=== PATIENT | female | born 2000 | race Caucasian/White ===

== ENCOUNTER 2024-12-01 21:09 | Emergency (ER) | payer SELFPAY ==
[~2024-12-01] VITALS: Ht 162.6 cm; Wt 81.4 kg
[2024-12-01] MEDS ORDERED: MULTTAB20 PO (21:16)
[2024-12-01] MEDS ORDERED: UNIS25TA3 PO (21:16)
[2024-12-01] MEDS: NS (Normal Saline) 0.9% 1,000 ML IV ONE (23:29)
[2024-12-01] MEDS: ONDANSETRON 4MG 2ML VIAL IV ONE (23:30)
[2024-12-01 23:33] LABS: BASO # 0.1 10^3/uL (0.0-0.2); BASO % 0.4 % (0.0-1.0); EOS # 0.3 10^3/uL (0.0-0.5); EOS % 1.8 % (0.0-3.0); HEMATOCRIT 43.6 % (36.0-47.0); HEMOGLOBIN 15.3 g/dl (12.0-15.5); LYMPH # 3.3 10^3/uL (1.5-5.0); LYMPH % 19.3 % (24.0-44.0); MEAN CORPUSCULAR HEMOGLOBIN 29.9 pg (27.0-33.0); MEAN CORPUSCULAR HGB CONC 35.1 g/dl (32.0-36.5); MEAN CORPUSCULAR VOLUME 85.3 fl (80.0-96.0); MONO # 0.9 10^3/uL (0.0-0.8); NEUTROPHILS # 12.5 10^3/uL (1.5-8.5); PLATELET COUNT, AUTOMATED 333 10^3/uL (150-450); RED BLOOD COUNT 5.11 10^6/uL (4.00-5.40); WHITE BLOOD COUNT 17.1 10^3/uL (4.0-10.0)
[2024-12-01 23:56] LABS: LIPASE 35 U/L (12-53)
[2024-12-01 23:58] LABS: ALBUMIN 3.6 G/DL (3.2-5.2); ALKALINE PHOSPHATASE 72 U/L (35-104); ALT/SGPT 36 U/L (7.0-40); AST/SGOT 21 U/L (<34); BILIRUBIN,DIRECT 0.2 MG/DL (<0.4); BILIRUBIN,TOTAL 0.8 MG/DL (0.3-1.2); BLOOD UREA NITROGEN 6 MG/DL (9-23); CALCIUM LEVEL 9.4 MG/DL (8.5-10.1); CARBON DIOXIDE LEVEL 24 MMOL/L (20-31); CHLORIDE LEVEL 104 MMOL/L (98-107); CREATININE FOR GFR 0.52 MG/DL (0.55-1.30); GLOMERULAR FILTRATION RATE > 90.0 (>60); GLUCOSE, FASTING 82 MG/DL (60-100); POTASSIUM SERUM 3.7 MMOL/L (3.5-5.1); SODIUM LEVEL 140 MMOL/L (136-145)
[2024-12-02 00:39] LABS: KETONE, URINE AUTO RFX 2+ mg/dL (NEGATIVE); LEUKOCYTE ESTERASE UR AUTO RFX NEGATIVE (NEGATIVE); MUCUS, URINE RFX LARGE (NEGATIVE); NITRITE, URINE AUTO RFX NEGATIVE (NEGATIVE); RBC, URINE AUTO RFX 3 /HPF (0-3); SQUAM EPITHELIAL CELL UR AURFX 5 /HPF (0-6); WBC, URINE AUTO RFX 4 /HPF (0-3)
[2024-12-02 01:30] VITALS: BP 125/83; TEMP 97.8; O2SAT 98
[2024-12-02] MEDS ORDERED: ONDA-282 PO (01:32)
== END 2024-12-02 01:40 | disposition home or self-care (01) ==
LOC: M ED 21:09
DX: O21.0 Mild hyperemesis gravidarum (principal)
CPT/HCPCS: 80048; 80076; 81001; 83690; 85025; 87486; 87581; 87633; 87798; 93041; 96374; 99284; J2405

== ENCOUNTER → 2025-03-29 | Outpatient (CLI) | payer OTHER ==
[~2025-03-29] MED LIST: MULTTAB20 PO; ONDA-282 PO; UNIS25TA3 PO
[2025-03-29 17:54] LABS: GLUCOSE CHALLENGE TEST 1 HOUR 81 MG/DL (LESS THAN 140)
[2025-03-29 17:55] LABS: PLATELET COUNT, AUTOMATED 283 10^3/uL (150-450)
[2025-03-29 18:02] LABS: Trichomonas vaginalis (AMP) NOT DETECTED (NEGATIVE)
[2025-03-29 18:24] LABS: HIV 1&2 SCREEN NEGATIVE (NEGATIVE)
[2025-03-29 18:26] LABS: GC DNA AMPLIFICATION NEGATIVE (NEGATIVE)
[2025-03-29 18:32] LABS: HEPATITIS C VIRUS ABY INDEX < 0.02 INDEX (<0.8)
== END ==
LOC: M PLALAB 11:54
PROVIDERS: ATTEND Advanced Practice Midwife
DX: Z34.02 Encounter for supervision of normal first pregnancy, second trimester (principal)

== ENCOUNTER → 2025-06-06 | Outpatient (REF) | payer OTHER | LOC: M SFHCWAGY 11:15 | PROVIDERS: ATTEND Advanced Practice Midwife | DX: Z36.85 Encounter for antenatal screening for Streptococcus B (principal); Z3A.36 36 weeks gestation of pregnancy ==